=== PATIENT | male | born 1955 | race Caucasian/White ===

== ENCOUNTER → 2016-06-21 | Outpatient (CLI) | payer MEDICAID ==
--- NOTE | 2016-06-21 17:02 | US ---
Bilateral Duplex Carotid Sonography at 1328 hours Clinical Indications: History of atherosclerotic plaque right carotid. Follow up stenosis. History of left endarterectomy in 2015. Preoperative evaluation for right. Technique: The cervical portions of the carotid and vertebral arteries were imaged and interrogated by duplex ultrasound. Comparison: July 2014. Findings Right Carotid: The common carotid artery, bifurcation, and origin of the internal and external carot id artery are well imaged. Doppler velocity estimates in cm/sec are as follows: ICA 108, CCA 223, a nd ECA 413. ICA to CCA ratio is 2.06. End diastolic velocity in cm/sec is 21.2 in the CCA and 42.4 in the ICA. There is extensive atherosclerotic plaque throughout the distal right common carotid art marcial, carotid bulb, proximal internal carotid artery, and proximal external carotid artery. There is broadening of the spectral waveform. Left Carotid: The common carotid artery, bifurcation, and origin of the internal and external caroti d artery are well imaged. Doppler velocity estimates in cm/sec are as follow: ICA 135, CCA 87, and ECA 355. ICA to CCA ratio is 0.64. Mild atherosclerotic plaque is seen in the distal common carotid artery and carotid bulb. Vertebral Arteries: Antegrade flow is shown by pulsed Doppler of each vertebral artery. Impression: Severe atherosclerotic plaque in the distal common carotid artery, common carotid bulb, and proximal internal carotid artery on the right, with severe stenosis of 70-89%. Mild atherosclero tic plaque in the left carotid bulb, which is not flow significant. Measurement of carotid stenosis is based on velocity parameters that correlate the residual internal carotid diameter with [place] Symptomatic Carotid Endarterectomy Trial (NASCET) based on steno sis levels.
== END ==
LOC: FIMAGING 13:01
PROVIDERS: ATTEND Surgery
DX: I65.23 Occlusion and stenosis of bilateral carotid arteries (principal)

== ENCOUNTER → 2016-11-20 | Outpatient (CLI) | payer MEDICAID | LOC: FIMAGING 07:56 | PROVIDERS: ATTEND Physician Assistant | DX: E11.51 Type 2 diabetes mellitus with diabetic peripheral angiopathy without gangrene (principal); I10 Essential (primary) hypertension; Z87.891 Personal history of nicotine dependence ==

== ENCOUNTER → 2018-07-01 | Outpatient (CLI) | payer MEDICAID | LOC: FIMAGING 09:07 | PROVIDERS: ATTEND Internal Medicine | DX: I70.8 Atherosclerosis of other arteries (principal) ==

== ENCOUNTER 2018-07-20 07:50 | Observation (INO) | payer MEDICAID ==
[2018-07-20] MEDS ORDERED: diphenhydrAMINE 25 MG CAP PO ONE (07:51)
[2018-07-20] MEDS ORDERED: ASPIRIN EC 325 MG TAB PO ONE (07:51)
[2018-07-20] MEDS ORDERED: FAMOTIDINE 20 MG TAB PO ONE (07:51)
[2018-07-20] MEDS ORDERED: DIAZEPAM 5 MG TAB PO ONE (07:51)
[2018-07-20] MEDS ORDERED: NS 1,000 ML IV ONE (07:51)
[2018-07-20] MEDS ORDERED: LIDOCAINE 1% 300 MG/30 ML SDV ONE (08:30)
[2018-07-20] MEDS ORDERED: fentaNYL 100 MCG/2 ML INJ ONE ×2 (08:30→10:29)
[2018-07-20] MEDS ORDERED: MIDAZOLAM 2 MG/2 ML VIAL ONE ×2 (08:30→10:29)
[2018-07-20 08:36] LABS: PLATELET COUNT 240 10^3/uL (150-400)
[2018-07-20] MEDS ORDERED: IOPAMIDOL (ISOVUE-300) 100 ML BTL ONE (08:42)
[2018-07-20] MEDS ORDERED: CLOPIDOGREL BISULFATE 75 MG TAB ONE (08:48)
--- NOTE | 2018-07-20 08:49 | PDPROPOC ---
Sedation Plan of Care Sedation Plan of Care: mental status noted, patient educated of risks, benefits , alternatives ASA Classification: ASA 2 Planned drugs: fentanyl, midazolam Mallampati Score: Class 2 Mallampati Reference Image: Patient passed 3-3-2 rule?: Yes
--- NOTE | 2018-07-20 08:49 | PDHPUP ---
History & Physical Update H&P update statement: This history and physical update is based on an assessment of the patient which was completed after admission or registration (within 24 hours), but prior to the surgery/procedure. H&P update: H&P reviewed & patient examined, no change in patient's condition since H&P completed
[2018-07-20 08:50] LABS: INR 1.02 (0.83-1.16); PROTIME(PATIENT) 13.6 SEC (12.0-15.0)
[2018-07-20] MEDS ORDERED: CLOPIDOGREL BISULFATE 75 MG TAB PO ONE (09:00)
[2018-07-20] MEDS ORDERED: HEPARIN 10,000 UNIT/10 ML MDV (1,000 UNIT/ML) ONE ×2 (09:11→10:32)
[2018-07-20] MEDS ORDERED: hydrALAZINE 20 MG/ML VIAL ONE (10:54)
[2018-07-20] MEDS ORDERED: NITROGLYCERIN 0.4 MG BTL SL PRN ×2 (11:22→11:23)
[2018-07-20] MEDS ORDERED: HYDROCODONE/APAP 5/325 TAB PO PRN (11:22)
[2018-07-20] MEDS ORDERED: ONDANSETRON 4 MG/2 ML VIAL IVP PRN (11:22)
[2018-07-20] MEDS ORDERED: ATROPINE SULFATE 1 MG/10 ML SYR IVP PRN (11:22)
[2018-07-20] MEDS: OXYCODONE/APAP 5/325 TAB PO PRN ×2 (14:28→18:35)
[2018-07-20] MEDS ORDERED: hydrALAZINE 20 MG/ML VIAL IVP PRN (14:43)
[2018-07-20] MEDS ORDERED: NICOTINE 21 MG/24 HR PATCH TD ONE (14:45)
[2018-07-20] MEDS: NICOTINE 21 MG/24 HR PATCH TD SCH ×2 (15:00→19:56)
[2018-07-20] MEDS: DOCUSATE SODIUM 100 MG CAP PO SCH ×2 (15:40→18:28)
[2018-07-20] MEDS ORDERED: METOPROLOL TARTRATE 5 MG/5 ML INJ ONE (16:01)
[2018-07-20] MEDS ORDERED: METOPROLOL TARTRATE 5 MG/5 ML INJ IVP ONE (16:15)
[2018-07-20] MEDS: INSULIN LISPRO 100 UNIT/ML SC SCH ×2 (17:26→18:28)
--- NOTE | 2018-07-20 18:02 | CPIP ---
[f rep st] INVASIVE CARDIAC PROCEDURE DATE OF PROCEDURE: 07/20/2018 INDICATION: Claudication. PROCEDURE: 1. Nonselective right groin sheathogram. 2. Runoff of right lower extremity. 3. Abdominal aortogram with successful catheter placed in the left common femoral artery. 4. Runoff of left lower extremity. 5. [employer] and stenting of left SFA utilizing Rhonda 6 x 100, 7 x 100, and 7 x 60 drug-eluting stents. 6. PATTERN [employer] CHAIN [employer]KER and stenting of left common iliac artery utilizing 9.0 x 25 mm balloon expandable stent. HISTORY: Briefly, this is a 62-year-old male with history of severe lower extremity claudication vitor pite medical therapy and exercise therapy. Patient was found by ultrasound findings to have high-gra de mid left SFA disease, as well as high-grade infrapopliteal disease on the right side. Given these findings, the patient was consented for invasive angiography. DESCRIPTION OF PROCEDURE: After informed consent, the patient was brought to [facility], where the right groin was prepped and draped in sterile fashion. Using lidocaine, a short 6-Frenc h sheath in right femoral artery verified angiographically. Runoff of the right lower extremity show ed diseased, but patent right common femoral artery, patent right SFA and profunda artery. The SFA h ad diffuse 30% to 40% disease throughout its course. The popliteal artery appeared patent on the rig ht side; however, in the TP trunk, there appeared to be a 90% lesion just before the takeoff of an an terior tibial artery and what appeared to be the posterolateral artery. The anterior tibial artery a ppeared to be the dominant vessel running to the foot. The universal flush catheter was then advanced to the descending aorta, abdominal aortogram, which sh owed patent descending aorta, patent right common iliac artery, patent right external, internal iliac arteries. The left common iliac artery had a focal tubular lesion right after the midportion of lef t common iliac artery. The left internal and external iliac arteries appeared to be patent. The uni versal flush catheter was advanced to the left artery where runoff of the left lower extre mity was obtained, which showed patent left common femoral artery, patent left profunda artery, paten t left SFA, which diffuse 30% to 40% disease in its midportion; however, in its mid aspect of the SFA, appeared 100% occlusion with reconstitution in Gilles's canal. Infrapopliteal, there ap peared to be intact 2-vessel runoff to the foot via the posterior tibial artery and the anterior tibi al artery. At this time, a long stiff Glidewire was placed into the SFA. Jay flush catheter was removed. A 7-Jordanian 45 cm Destination sheath was then placed in the left common femoral artery verified angio graphically. The patient measured 9000 heparin IV, also 600 Plavix p.o. Utilizing an angled [place] c atheter, as well as an angle tipped wire and a straight stiff Glidewire, attempts were made to cross this vessel antegrade; however, this was unsuccessful. We decided to utilize a [facility] Outback re-ent ry catheter. This was successful with a throw-away wire placed down into the posterior tibial artery . After this performed, the Outback catheter was removed. We then proceeded with PATTERN AND CHAIN MAKER of this area w ith a 4.0 x 100 mm balloon throughout the length of the SFA. After this was performed, we then proceed with stenting. After we switched out the wire then for a 0 .35 J-wire, we then proceeded with stenting of this vessel with an Rhonda balloon via 6.0 x 100 mm stent deployed from the distal SFA back into the mid SFA. This was followed by additional 7 x 100 stent and a final 7 x 60 stent. These were all then dilated with a 6.0 x mm balloo n, and then, a 5.0 x 100 mm balloon. At this point, angiographic images were obtained, which showed excellent patency of the stented regions with no overt evidence of dissection or perforation. There was what appeared to be a little waist in the mid SFA stentings; however, after these post-dilations, we decided no further aggressive intervention would be warranted here. The sheath was pulled back and there was a 40 mm gradient jump across the left common iliac artery wh ere the lesion was noted before. We then proceeded with stenting this area with a balloon expandable 9.0 x 25 mm stent deployed at 14 atmospheres. After deployment, angiographic images were obtained, which showed excellent patency of the stented region with no evidence of dissection or perforation. The wire was removed. The 7-Jordanian sheath was replaced with a short 8-Jordanian sheath. Patient tolera fatoumata the procedure well with no complications. IMPRESSION: Successful percutaneous transluminal angioplasty and stenting of left common iliac arter y, left superficial femoral artery utilizing Rhonda drug-eluting stents in the superficial femoral ar olga and balloon expandable stent in the left common iliac artery. PLAN: The patient will be admitted to observation. If clinically stable, will be discharged within 24 hours. /[id number]/MODL
[2018-07-20] MEDS ORDERED: METOPROLOL TARTRATE 5 MG/5 ML INJ IVP PRN (18:18)
[2018-07-20] MEDS: GABAPENTIN 300 MG CAP PO SCH (19:59)
[2018-07-20] MEDS ORDERED: INSULIN GLARGINE 100 UNITS/ML UNIT SC SCH (21:00)
[2018-07-20] MEDS ORDERED: METOPROLOL TARTRATE 25 MG TAB PO SCH (21:00)
[2018-07-21] MEDS: OXYCODONE/APAP 5/325 TAB PO PRN ×2 (01:28→07:43)
[2018-07-21 04:36] LABS: PLATELET COUNT 236 10^3/uL (150-400)
--- NOTE | 2018-07-21 06:18 | PDCARPN ---
Cardiology Progress Note Chief Complaint: LE claudication Assessment/Plan: Assessment: PAD s/p left SFA/OCTAVIO stenting Plan: 07/21/18 06:17 doing well d/c home continue xarelto and plavix Subjective: LLE soreness Reviewed/Discussed With: multidisciplinary team Time Spent with Patient: greater than 25 minutes Time Spent with Patient: Greater than 25 minutes spent on this patients care, greater than 50% of time spent counseling, educating, and coordinating care regarding the above mentioned plan. Objective: Vital Signs (8 Hrs) Temp Pulse Resp BP Pulse Ox 07/21/18 03:42 36.6 C 70 14 183/81 H 94 07/20/18 23:43 36.7 C 72 14 165/88 H 95 Intake/Output (24 Hrs) 07/20/18 07/21/18 07/22/18 05:59 05:59 05:59 Intake Total 650 Output Total 500 Balance 150 Intake: Oral (ml) 650 Output: Urine (ml) 500 Urinal 500 Other: Weight 87.543 kg Intake Quantity Yes Sufficient Number of Voids Urinal 2 Result Diagrams: 07/21/18 03:38 07/21/18 03:38 - Physical Exam Constitutional: no apparent distress Eyes: PERRL Ears, Nose, Mouth, Throat: moist mucous membranes Cardiovascular: regular rate and rhythm Peripheral Pulses: 1+: femoral (R), femoral (L) Respiratory: clear to auscultate bilat Gastrointestinal: normoactive bowel sounds Genitourinary: no suprapubic tenderness Skin: no rashes Musculoskeletal: no muscular tenderness Neurologic: AAOx3 Psychiatric: cooperative ICD10 Worksheet Patient Problems: Problems Problem Status Onset CVA (cerebral vascular accident) Acute Carotid artery disease Acute Diabetes Acute HLD (hyperlipidemia) Acute HTN (hypertension) Acute
--- NOTE | 2018-07-21 06:40 | GDS ---
[f rep st] DISCHARGE SUMMARY DISCHARGE DIAGNOSIS: Peripheral arterial disease. HOSPITAL COURSE: Briefly, this is a 62-year-old male with a history of severe left lower extremity c laudication. Patient had noninvasive evidence of high-grade left SFA disease as well as left common iliac disease. The patient underwent successful [employer] and stenting of the left SFA utilizing 3 Rhonda drug-eluting stents. The patient also went underwent successful [employer] and stenting of his left common iliac artery with a 9 x 25 mm balloon expandable stent. Post procedure, the patient has done well. He has been ambulating in the halls without problems. His pulses are palpable in both feet this morn ing. He will be discharged this morning with his home medications including Xarelto and Plavix 75 p. o. daily. He will follow up in the office in 1 week's time. /[id number]/MODL
[2018-07-21] MEDS: GABAPENTIN 300 MG CAP PO SCH (07:44)
[2018-07-21] MEDS: DOCUSATE SODIUM 100 MG CAP PO SCH (07:44)
[2018-07-21] MEDS: INSULIN LISPRO 100 UNIT/ML SC SCH (07:45)
[2018-07-21 08:13] VITALS: BP 148/88
[2018-07-21] MEDS ORDERED: PANTOPRAZOLE SODIUM 40 MG TAB PO SCH (09:00)
[2018-07-21] MEDS ORDERED: LISINOPRIL 40 MG TAB PO SCH (09:00)
[2018-07-21] MEDS ORDERED: METOPROLOL TARTRATE 25 MG TAB PO SCH (09:00)
[2018-07-21] MEDS ORDERED: CLOPIDOGREL BISULFATE 75 MG TAB PO SCH (09:00)
[2018-07-21] MEDS ORDERED: RIVAROXABAN 10 MG TAB PO SCH (09:00)
[2018-07-21] MEDS ORDERED: ATORVASTATIN CALCIUM 40 MG TAB PO SCH (09:00)
== END 2018-07-21 10:59 | disposition home or self-care (01) ==
LOC: FCATH 07:50 → F2W 11:22
PROVIDERS: ADMIT Internal Medicine Cardiovascular Disease; ATTEND Internal Medicine Cardiovascular Disease
DX: I70.212 Atherosclerosis of native arteries of extremities with intermittent claudication, left leg (principal); I48.91 Unspecified atrial fibrillation; E11.9 Type 2 diabetes mellitus without complications; I10 Essential (primary) hypertension; Z86.73 Personal history of transient ischemic attack (TIA), and cerebral infarction without residual deficits
CPT/HCPCS: 37226; 75716; C1725; C1769; C1887; C1874; C1876; J0360; J1644; J1815; J2250; J3010; Q9967